=== PATIENT | male | born 1940 | race Caucasian/White ===

== ENCOUNTER 2017-09-05 22:41 | Inpatient (IN) | payer MEDICARE ==
[2017-09-05] MEDS ORDERED: Sodium Chloride 0.9% 100 ML ONE (23:27)
[2017-09-05] MEDS ORDERED: cefTRIAXone\\ROCEPHIN 2 GM VIAL ONE (23:27)
[2017-09-05 23:43] LABS: Bilirubin Negative (Negative); Blood, Urine Moderate (Negative); Clarity CLOUDY (Clear); Glucose, Urine (Dipstick) Negative (Negative); Leukocyte Moderate (Negative); Nitrite Negative (Negative); Protein, Urine (Dipstick) Negative (Neg-Trace); Specific Gravity, Urine 1.007 (1.002-1.036)
[2017-09-05 23:46] LABS: Bacteria/HPF 2+ HPF (None Seen); Hyaline Casts/LPF 4-6 HYALINE CAST LPF (0-3 Hyaline); Pathc Cast-AUWi Flag 1.01 (0-2.49); Squamous Epithelial None Seen HPF (0-3); WBC/HPF 21-50 HPF (0-3)
[2017-09-06] LABS: Troponin I 0.065 ng/mL (< 0.028)
[2017-09-06] MEDS ORDERED: Acetaminophen 325 MG TAB PO PRN (01:52)
[2017-09-06] MEDS ORDERED: Ondansetron HCl/PF 4 MG/2 ML Vial IVP PRN (01:52)
[2017-09-06] MEDS ORDERED: Ondansetron ODT 4 MG TAB SL PRN (01:52)
[2017-09-06 02:58] LABS: Troponin I 0.058 ng/mL (< 0.028)
[2017-09-06] MEDS ORDERED: HumaLOG 300 UNITS/3 ML VIAL SC PRN (03:47)
[2017-09-06] MEDS ORDERED: Dextrose 50% Abboject 50 ML SYRINGE SLOW IVP PRN (03:47)
[2017-09-06] MEDS ORDERED: Dextrose 5% in Water 1,000 ML IV PRN (03:47)
--- NOTE | 2017-09-06 06:10 | HP ---
CHIEF COMPLAINT: Weakness. HISTORY OF PRESENT ILLNESS: Patient is a 77-year-old male who was in [facility], who reports that he has some chronic debility relating to a C-spine injury 10 years ago. Patient fell and actual ly broke his C-spine, had to have surgery. He has had some generalized weakness since that time. Freddy calloway also has a history of prostate cancer requiring radiation therapy, which resulted in a chronic indwelling Burden catheter. Patient reports that about one week ago, he started feeling generally wea k. This is on top of his typical chronic weakness. He progressed to the point where he actually fel l about 3 days ago. He had a home health nurse that time tell him that she thought that he was dehyd rated and he should start pushing fluids. This was partly based on the fact that he was having some dark urine. He states he has been trying to push fluids, but has just become progressively weak and ultimately presented to the emergency department in [place] today. There, the patient was noted to have an O2 sat of 89% on room air. His temperature was 99.4 tympanic. He has significant periph eral edema, which he states is chronic and has been present for years. Based on the hypoxia, the per ipheral edema and a chest x-ray, the patient was felt to be in some congestive heart failure with vol ume overload. He received a dose of IV Lasix at that time. He also had a slightly elevated troponin and then was subsequently transferred to [place] to this facility. In the Emergency Department here, the patient was reassessed and felt as though he likely had some underlying pneumonia and was given a dose of Levaquin and Rocephin. Currently, the patient reports that he is feeling somewhat better an d believes it was likely due to the diuresis that he received in [place]. On questioning, he re ports that he has had some shortness of breath during this last week of generalized weakness. He als o admits to having a cough that was productive of some thick yellow sputum. He denies any fevers or chills, but states that he is always extremely cold even on the hottest days. REVIEW OF SYSTEMS: Patient reports he has had very poor appetite over the last week. He has had the dark urine. I believe, he did actually have some fever this morning briefly otherwise eleven-point system review is negative other than those things mentioned in the history of present illness. PAST MEDICAL HISTORY: Notable for the above-mentioned C-spine injury related to the fall about 10 ye ars ago. He also has a history of prostate cancer and requiring radiation therapy. He has chronic i ndwelling Burden catheter. Diabetes mellitus, he reports he has been checking his blood sugars and th ey have been running higher since he has been feeling poorly. PAST SURGICAL HISTORY: C-spine surgery, suprapubic catheter placement, tonsillectomy, herniorrhaphy, cataractectomy. FAMILY HISTORY: His mother at 22. He is unaware of the specifics, but believes she had some ty pe of throat problem. His father at 44 of cancer. SOCIAL HISTORY: Patient is . He quit smoking over 40 years ago. He has no alcohol use. He states that he lives with his and she would be his surrogate decision maker. The patient is celso ar that he does want to be a DNR. ALLERGIES: ALBUTEROL, which caused him to feel jittery. He has also had some GI issues with METFORM IN. MEDICATIONS: Not entirely verified at this point include melatonin 5 mg at bedtime, vitamin C 500 mg every day, potassium 99 mg p.o. daily, Lasix 40 mg 1-2 p.o. daily, doxazosin 4 mg p.o. daily, oxybut ynin 5 mg q.8 hours, zinc 50 mg every day, glimepiride 4 mg every day. PHYSICAL EXAMINATION: VITAL SIGNS: Temperature 98.5, pulse 88, respirations 20, O2 sat 100% on 2 liters nasal cannula, BP 164/81. GENERAL APPEARANCE: Age appropriate male. He is awake, alert, oriented, pleasant, cooperative. He is in no distress. HEENT: PERRL. No OP lesions. He does have a very dry oral mucosa. NECK: Supple and symmetric without murmurs. CHEST: Lungs are clear. CARDIOVASCULAR: Regular rate and rhythm without murmurs. LUNGS: Have slightly diminished breath sounds at the bases with minimal rales noted. ABDOMEN: Soft, nontender, nondistended. Positive bowel sounds. No masses, no organomegaly. Suprap ubic catheter in place, looks good. EXTREMITIES: Reveal 2+ pitting edema to the level of the knee or higher. LABORATORY DATA: Troponin 0.065, repeat 0.058. Urinalysis shows moderate blood, moderate leukocyte esterase, negative nitrites, 4-6 rather red cells, 21-50 white cells, 2+ bacteria. White count 8.9, hemoglobin 14.1, MCV 76.6, platelets 108. Sodium is 129, potassium 3.4, chloride 88, BUN 32, creatin ine 1.22, glucose 315. Total bilirubin is 1.4, AST 55, ALT 128, alkaline phosphatase 208, albumin 3. 2. TSH is 0.38, T4 of 1.27. ASSESSMENT AND PLAN: 1. Generalized weakness. Differential includes possible urinary tract infection versus pneumonia ve rsus congestive heart failure versus dehydration with hyperglycemia versus possible etiology of the l iver. 2. Pneumonia is unclear whether this patient has significant findings on his x-ray at this point, I do not have access to that nor report that I can find in the chart. We will repeat a chest x-ray in the morning. In the meantime, the patient will be covered with Rocephin and azithromycin. The patie nt does have some productive cough. 3. Urinary tract infection. It is certainly possible as the patient is having some infection, but h e does have a chronic indwelling Burden catheter may be more colonization. We will follow up urine cu ltures and should be covered with Rocephin. Patient did receive a dose of Levaquin in the ER; jesus kingston I will not continue that unless indicated. 4. Peripheral edema. Patient may have some underlying congestive heart failure. This may be more d ependent. We will check an echocardiogram. Patient did receive a dose of Lasix; however, he has cecil e evidence of having some prerenal azotemia. We will hold off in any further aggressive diuresis unl ess that is indicated by the echo. His BNP today is low at 25.8. 5. Prerenal azotemia. Unclear if this is secondary to dehydration, which could be the case given hi s hyperglycemia or if this is due to poor cardiac function. Echocardiogram will help delineate that. 6. Elevated troponin, unclear etiology. This does appear to be decreasing rather than increasing. Certainly would be consistent with congestive heart failure picture. 7. Elevated liver function test with elevated bilirubin concerning for a cholestatic picture. We wi ll obtain ultrasound of the right upper quadrant. 8. Hyponatremia. This could be due to the prerenal azotemia or congestive heart failure and may be exacerbated by the hyperglycemia. We will recheck in the morning after he had had the diuresis earli er. 9. Sacral decubitus. Wound Care consult. 10. History of C-spine injury with generalized weakness. We will consult Physical Therapy. 11. Hematology: Patient has borderline low platelets. No acute intervention indicated at this time as they are adequate. 12. Deep venous thrombosis prophylaxis.
[2017-09-06 06:27] LABS: Troponin I 0.057 ng/mL (< 0.028)
--- NOTE | 2017-09-06 08:24 | ULT ---
RIGHT UPPER QUADRANT SONOGRAM: Date: 09/06/17 HISTORY: Abnormal liver function tests. FINDINGS: Echogenic stones are apparent within the gallbladder lumen. No gallbladder wall thickening or pericho lecystic fluid. Common duct 0.8 cm. Patient was reportedly not tender over the gallbladder fossa at the time of the exam. No free fluid. Liver is diffusely echogenic and heterogeneous without focal mass or intrahepatic bili south dilatation. IMPRESSION: 1. Cholelithiasis. Mildly dilated common duct without Mckeon's sign. Clinical correlation regarding other signs and symptoms of acute cholecystitis is required. Radionuclide hepatobiliary scan could be used to evaluate for biliary patency if needed. 2. Hepatic steatosis. POS: OFF
[2017-09-06] MEDS: Enoxaparin Sodium 40 MG/0.4 ML SYRINGE SC SCH (08:26)
[2017-09-06] MEDS: Famotidine 20 MG TAB PO SCH ×2 (08:26→20:44)
[2017-09-06] MEDS: Docusate 100 MG CAP PO SCH ×2 (08:26→20:45)
--- NOTE | 2017-09-06 08:57 | RAD ---
ONE VIEW CHEST: HISTORY: Hypoxia. FINDINGS: AP view chest was obtained on 09/06/17. One view chest demonstrates EKG leads seen over the chest. Pulmonary vascular congestion seen. Areas of airspace opacities seen in the left lung base compatible with left lower lobe atelectasis or pneumonia. The right lung is well aerated. IMPRESSION: Areas of airspace opacity seen in the left lung base. POS: [facility]
[2017-09-06] MEDS ORDERED: Prevnar 13-Val Conj/PF 0.5 ML SYRINGE IM ONE (09:00)
--- NOTE | 2017-09-06 13:54 | PDOC.PN ---
- Subjective Encounter Start Date: 09/06/17 Encounter Start Time: 13:53 Mr. Oswald was seen today in follow-up for progressive weakness.He says he feels a little better this morning. When asked about abdominal pain, he denies having this, nor nausea, just no appetite over the past few days. He denies cough or congestion, he denies dyspnea. - Objective Resuscitation Status: Resuscitation Status DNR:Do Not Resuscitate MAR Reviewed: Yes Vital Signs & Weight: Vital Signs (12 hours) Temp Pulse Resp BP Pulse Ox 09/06/17 11:42 99.5 F 85 18 119/77 96 09/06/17 08:00 99.7 F H 84 18 99 09/06/17 07:25 99.7 F H 84 18 122/59 L 99 09/06/17 05:43 98.7 F 85 20 103/58 L 99 09/06/17 02:23 98.5 F 88 20 164/81 H 100 09/06/17 02:10 98.5 F 88 20 100 Weight Admit Weight 280 lb 8 oz Weight 280 lb 8 oz I&O: 09/05/17 09/06/17 09/07/17 06:59 06:59 06:59 Intake Total 72 Output Total 800 Balance -728 Additional Labs: Accuchecks 09/06/17 09/06/17 11:20 06:14 POC Glucose 157 H 177 H Phys Exam - Physical Examination HEENT: PERRLA, sclera anicteric Respiratory: no wheezing, no rhonchi + rales in both bases Cardiovascular: RRR, no significant murmur, no rub Gastrointestinal: soft, non-tender, positive bowel sounds Musculoskeletal: no edema Dx/Plan (1) Generalized weakness Code(s): R53.1 - WEAKNESS Status: Acute (2) Pneumonia, community acquired Code(s): J18.9 - PNEUMONIA, UNSPECIFIED ORGANISM Status: Acute (3) Cholelithiasis Code(s): K80.20 - CALCULUS OF GALLBLADDER W/O CHOLECYSTITIS W/O OBSTRUCTION Status: Acute (4) Diabetes mellitus type 2 in obese Code(s): E11.69 - TYPE 2 DIABETES MELLITUS WITH OTHER SPECIFIED COMPLICATION; E66.9 - OBESITY, UNSPECIFIED Status: Acute (5) Hyponatremia Code(s): E87.1 - HYPO-OSMOLALITY AND HYPONATREMIA Status: Acute - Plan * Generalized weakness- ? due to pneumonia alone versus pneumonia and cholecystitis- he has elevated LFT's but no complaint of abdominal pain, or nausea- will check a HIDA scan to help us differentiate * Pneumonia- continue Rocephin, and Azithromycin. * Hyponatremia- this may be due to volume depletion- will place him on IV fluids and re-evaluate in the AM
[2017-09-06] MEDS ORDERED: hydrALAZINE 20 MG/ML VIAL SLOW IVP PRN (14:00)
[2017-09-06] MEDS ORDERED: Melatonin 3 MG TAB PO PRN (14:13)
[2017-09-06] MEDS: Acetaminophen 325 MG TAB PO PRN (15:29)
[2017-09-06] MEDS: Sodium Chloride 0.9% 1,000 ML IV SCH (16:54)
[2017-09-06] MEDS: Oxybutynin 5 MG TAB PO SCH (20:44)
[2017-09-06] MEDS: cefTRIAXone\\ROCEPHIN 1 GM in Sodium Chloride 0.9% 100 ML IVPB SCH (20:45)
[2017-09-06] MEDS: Azithromycin 500 MG in Sodium Chloride 0.9% 250 ML 250 ML IVPB SCH (21:36)
[2017-09-07 05:47] LABS: Hemoglobin A1c 10.8 % (4.0-6.0)
[2017-09-07 05:49] LABS: #Basophils 0.1 thou/uL (0.0-0.2); #Eosinphils 0.2 thou/uL (0.0-0.7); #Lymphocytes 1.4 thou/uL (1.20-3.40); #Monocytes 1.2 thou/uL (0.11-0.59); #Neutrophils 5.1 thou/uL (1.40-6.50); %Basophils 1.7 % (0.0-1.0); %Eosinophils 2.5 % (0.0-10.0); %Lymphocytes 17.1 % (21.0-51.0); %Monocytes 14.6 % (0.0-10.0); %Neutrophils 64.1 % (42.0-75.0); Hemoglobin 13.7 g/dL (14.0-18.0); Mean Corpuscular HGB CONC 32.8 g/dL (32.0-36.0); Mean Corpuscular Hemoglobin 26.3 pg (27.0-31.0); Mean Corpuscular Volume 80.2 fl (80.0-94.0); Platelet Count 105 thou/uL (130-400); RBC Distribution Width 15.4 % (11.5-14.5)
[2017-09-07 05:53] LABS: ALT (SGPT) 62 U/L (8-55); AST (SGOT) 30 U/L (5-34); Albumin 2.9 g/dL (3.4-4.8); Alkaline Phosphatase 168 U/L (40-150); Anion Gap 12 mmol/L (10-20); BUN (Urea Nitrogen) 22 mg/dL (8.4-25.7); Bilirubin, Total 0.7 mg/dL (0.2-1.2); Calc. Creatinine Clearance 129 mL/min (70-130); Calcium 8.6 mg/dL (7.8-10.44); Carbon Dioxide 32 mmol/L (23-31); Cardiac Risk 11.7 (Less than 4.5); Chloride 95 mmol/L (98-107); Cholesterol 129 mg/dl (< 200 Desired); Estimated GFR-MDRD 83; Globulin 3.5 g/dL (2.4-3.5); Glucose 190 mg/dL (83-110); HDL Cholesterol 11 mg/dL (>60 Neg Risk); LDL Cholesterol, Calculated 75 mg/dL; Potassium 3.1 mmol/L (3.5-5.1); Protein, Total 6.4 g/dL (5.8-8.1); Sodium 136 mmol/L (136-145); Triglycerides 215 mg/dL (Less than 150)
[2017-09-07] MEDS: Sodium Chloride 0.9% 1,000 ML IV SCH (07:14)
[2017-09-07] MEDS: Glimepiride 4 MG TAB PO SCH (08:00)
[2017-09-07] MEDS: Enoxaparin Sodium 40 MG/0.4 ML SYRINGE SC SCH ×2 (09:00→17:56)
[2017-09-07] MEDS: Doxazosin Mesylate 4 MG TAB PO SCH (09:00)
[2017-09-07] MEDS: Famotidine 20 MG TAB PO SCH ×2 (09:00→20:02)
[2017-09-07] MEDS: Docusate 100 MG CAP PO SCH ×2 (09:00→20:03)
[2017-09-07] MEDS: Oxybutynin 5 MG TAB PO SCH ×2 (09:00→20:02)
[2017-09-07] MEDS: Potassium Chloride 10 MEQ in Premix Bag 1 BAG IVPB SCH ×3 (13:48→16:05)
--- NOTE | 2017-09-07 14:11 | NM ---
HEPATOBILIARY SCAN: HISTORY: Abnormal liver function tests. Cholelithiasis. Hepatic steatosis. RADIOPHARMACEUTICAL: 4.8 millicuries technetium 99m mebrofenin injected intravenously. FINDINGS: There is good tracer extraction by the liver with prompt excretion into the biliary tract and small b owel loops, and normal filling of the gallbladder. The gallbladder fills up at 30 minutes and sponta neously empties subsequently. The calculated ejection fraction, even without stimulation (oral fatty meal or CCK-8 IV infusion), measures 75%. IMPRESSION: Normal exam. POS: [facility]
--- NOTE | 2017-09-07 14:27 | PDOC.PN ---
- Subjective Encounter Start Date: 09/07/17 Encounter Start Time: 14:24 Mr. Oswald was seen today in follow-up of generalized weakness. He says he feels a little better, but is still quite weak. He says prior to coming to the hospital with this current illness, he was able to walk a few steps with his walker, and transfer to his wheelchair. Now he says he is unable tomove hardly at all even in the bed. He is afraid he will fall, and he stays it takes 3 people to get him up. - Objective Resuscitation Status: Resuscitation Status DNR:Do Not Resuscitate MAR Reviewed: Yes Vital Signs & Weight: Vital Signs (12 hours) Temp Pulse Resp BP Pulse Ox 09/07/17 13:27 98.1 F 78 19 134/70 94 L 09/07/17 08:16 98.8 F 74 20 135/66 91 L 09/07/17 08:00 98.8 F 74 20 91 L 09/07/17 04:00 98 F 79 18 127/57 L 94 L Weight Admit Weight 280 lb 8 oz Weight 280 lb 8 oz I&O: 09/06/17 09/07/17 09/08/17 06:59 06:59 06:59 Intake Total 72 Output Total 800 1650 Balance -728 -1650 Result Diagrams: 09/07/17 05:08 09/07/17 05:08 Additional Labs: Accuchecks 09/07/17 09/06/17 09/06/17 06:33 20:35 16:44 POC Glucose 171 H 190 H 183 H Phys Exam - Physical Examination HEENT: PERRLA Respiratory: no wheezing, no rales, no rhonchi, clear to auscultation bilateral Cardiovascular: RRR, no significant murmur, no rub Gastrointestinal: soft, non-tender, positive bowel sounds Musculoskeletal: edema present trace pedal edema Dx/Plan (1) Generalized weakness Code(s): R53.1 - WEAKNESS Status: Acute (2) Pneumonia, community acquired Code(s): J18.9 - PNEUMONIA, UNSPECIFIED ORGANISM Status: Acute (3) Cholelithiasis Code(s): K80.20 - CALCULUS OF GALLBLADDER W/O CHOLECYSTITIS W/O OBSTRUCTION Status: Acute (4) Diabetes mellitus type 2 in obese Code(s): E11.69 - TYPE 2 DIABETES MELLITUS WITH OTHER SPECIFIED COMPLICATION; E66.9 - OBESITY, UNSPECIFIED Status: Acute (5) Hyponatremia Code(s): E87.1 - HYPO-OSMOLALITY AND HYPONATREMIA Status: Acute - Plan * Generalized weakness- this is likely from Pneumonia, as the HIDA scan was negative, and he does not offer any symptoms related to biliary disease * Will continue Rocephin and Azithromycin * Hyponatremia- improved * Hypokalemia- will replace potassium * DM- blood glucose is stable * Deconditioning- continue PT/OT, I suspect he will need a stay in [facility] or Rehab prior to returning home.
[2017-09-07] MEDS: cefTRIAXone\\ROCEPHIN 1 GM in Sodium Chloride 0.9% 100 ML IVPB SCH (20:00)
[2017-09-07] MEDS: Azithromycin 500 MG in Sodium Chloride 0.9% 250 ML 250 ML IVPB SCH (21:31)
[2017-09-08 05:40] LABS: Anion Gap 13 mmol/L (10-20); BUN (Urea Nitrogen) 15 mg/dL (8.4-25.7); Calc. Creatinine Clearance 164 mL/min (70-130); Calcium 8.5 mg/dL (7.8-10.44); Carbon Dioxide 28 mmol/L (23-31); Chloride 101 mmol/L (98-107); Estimated GFR-MDRD Greater than 90; Glucose 143 mg/dL (83-110); Potassium 3.1 mmol/L (3.5-5.1); Sodium 139 mmol/L (136-145)
[2017-09-08] MEDS: Glimepiride 4 MG TAB PO SCH (08:59)
[2017-09-08] MEDS: Famotidine 20 MG TAB PO SCH ×2 (08:59→21:00)
[2017-09-08] MEDS: Doxazosin Mesylate 4 MG TAB PO SCH (09:00)
[2017-09-08] MEDS: Oxybutynin 5 MG TAB PO SCH ×2 (09:00→20:59)
[2017-09-08] MEDS: Docusate 100 MG CAP PO SCH ×2 (09:00→20:59)
[2017-09-08] MEDS: Enoxaparin Sodium 40 MG/0.4 ML SYRINGE SC SCH (09:01)
--- NOTE | 2017-09-08 12:07 | PDOC.PN ---
- Subjective Encounter Start Date: 09/08/17 Encounter Start Time: 12:05 Mr. Oswald was seen today in follow-up. He does not have any complaints today. He is feeling much better, and is very happy he could stand up with the aid of a walker. - Objective Resuscitation Status: Resuscitation Status DNR:Do Not Resuscitate MAR Reviewed: Yes Vital Signs & Weight: Vital Signs (12 hours) Temp Pulse Resp BP Pulse Ox 09/08/17 08:44 98.5 F 65 12 130/60 92 L 09/08/17 08:00 98.5 F 65 12 09/08/17 03:22 97.9 F 66 21 H 115/57 L 96 Weight Admit Weight 280 lb 8 oz Weight 280 lb 8 oz I&O: 09/07/17 09/08/17 09/09/17 06:59 06:59 06:59 Intake Total 3071 Output Total 1650 1575 Balance -1650 1496 Result Diagrams: 09/07/17 05:08 09/08/17 04:54 Additional Labs: Accuchecks 09/08/17 09/07/17 09/07/17 06:02 20:50 17:01 POC Glucose 146 H 193 H 151 H Phys Exam - Physical Examination HEENT: PERRLA Respiratory: no wheezing, no rales, no rhonchi, clear to auscultation bilateral Cardiovascular: RRR, no significant murmur, no rub Gastrointestinal: soft, non-tender, positive bowel sounds Musculoskeletal: no edema Dx/Plan (1) Generalized weakness Code(s): R53.1 - WEAKNESS Status: Acute (2) Pneumonia, community acquired Code(s): J18.9 - PNEUMONIA, UNSPECIFIED ORGANISM Status: Acute (3) Cholelithiasis Code(s): K80.20 - CALCULUS OF GALLBLADDER W/O CHOLECYSTITIS W/O OBSTRUCTION Status: Acute (4) Diabetes mellitus type 2 in obese Code(s): E11.69 - TYPE 2 DIABETES MELLITUS WITH OTHER SPECIFIED COMPLICATION; E66.9 - OBESITY, UNSPECIFIED Status: Acute (5) Hyponatremia Code(s): E87.1 - HYPO-OSMOLALITY AND HYPONATREMIA Status: Acute - Plan * Pneumonia- continue IV antibiotics one more day- but can de-escalate tomorrow , since he is improving * Hypokalemia- he tells me he has a history of this prior to admission- will continue to replace, and check a serum magnesium level * DM- blood glucose is stable * Generalized weakness- continue PT/OT * Awaiting [facility] placement.
[2017-09-08] MEDS: Potassium Chloride 20 MEQ TAB PO SCH (18:21)
[2017-09-08] MEDS: cefTRIAXone\\ROCEPHIN 1 GM in Sodium Chloride 0.9% 100 ML IVPB SCH (21:16)
[2017-09-08] MEDS: Azithromycin 500 MG in Sodium Chloride 0.9% 250 ML 250 ML IVPB SCH (21:17)
[2017-09-09] MEDS: Acetaminophen 325 MG TAB PO PRN (06:44)
[2017-09-09 07:00] LABS: Anion Gap 12 mmol/L (10-20); BUN (Urea Nitrogen) 11 mg/dL (8.4-25.7); Calc. Creatinine Clearance 162 mL/min (70-130); Calcium 8.7 mg/dL (7.8-10.44); Carbon Dioxide 30 mmol/L (23-31); Chloride 102 mmol/L (98-107); Estimated GFR-MDRD Greater than 90; Glucose 114 mg/dL (83-110); Potassium 3.2 mmol/L (3.5-5.1); Sodium 141 mmol/L (136-145)
[2017-09-09] MEDS ORDERED: Saccharomyces boulardii 250 MG CAP PO SCH (09:00)
[2017-09-09] MEDS: Potassium Chloride 20 MEQ TAB PO SCH (09:10)
[2017-09-09] MEDS: Doxazosin Mesylate 4 MG TAB PO SCH (09:10)
[2017-09-09] MEDS: Enoxaparin Sodium 40 MG/0.4 ML SYRINGE SC SCH (09:10)
[2017-09-09] MEDS: Famotidine 20 MG TAB PO SCH (09:10)
[2017-09-09] MEDS: Glimepiride 4 MG TAB PO SCH (09:10)
[2017-09-09] MEDS: Oxybutynin 5 MG TAB PO SCH (09:11)
[2017-09-09] MEDS: Docusate 100 MG CAP PO SCH (09:11)
[2017-09-09 09:42] VITALS: BMI 39.1
--- NOTE | 2017-09-09 12:23 | PDOC.PN ---
- Subjective Encounter Start Date: 09/09/17 Encounter Start Time: 12:21 Mr. Oswald was seen in follow-up. He says he is feeling better. No complaints. He was able to stand some with physical therapy. - Objective Resuscitation Status: Resuscitation Status DNR:Do Not Resuscitate MAR Reviewed: Yes Vital Signs & Weight: Vital Signs (12 hours) Temp Pulse Resp BP Pulse Ox 09/09/17 08:00 98.3 F 68 12 93 L 09/09/17 07:00 98.3 F 68 12 118/57 L 09/09/17 03:00 97.9 F 69 17 141/70 H 96 Weight Admit Weight 280 lb 8 oz Weight 272 lb 11.2 oz I&O: 09/08/17 09/09/17 09/10/17 06:59 06:59 06:59 Intake Total 3071 910 Output Total 1575 2975 Balance 1496 -2065 Result Diagrams: 09/07/17 05:08 09/09/17 05:59 Additional Labs: Accuchecks 09/09/17 09/08/17 09/08/17 05:54 20:56 16:29 POC Glucose 106 154 H 149 H 09/08/17 10:48 POC Glucose 203 H Phys Exam - Physical Examination HEENT: PERRLA Respiratory: no wheezing, no rales, no rhonchi, clear to auscultation bilateral Cardiovascular: RRR, no significant murmur Gastrointestinal: soft, non-tender, positive bowel sounds Musculoskeletal: edema present trace pedal edema Dx/Plan (1) Generalized weakness Code(s): R53.1 - WEAKNESS Status: Acute (2) Pneumonia, community acquired Code(s): J18.9 - PNEUMONIA, UNSPECIFIED ORGANISM Status: Acute (3) Cholelithiasis Code(s): K80.20 - CALCULUS OF GALLBLADDER W/O CHOLECYSTITIS W/O OBSTRUCTION Status: Acute (4) Diabetes mellitus type 2 in obese Code(s): E11.69 - TYPE 2 DIABETES MELLITUS WITH OTHER SPECIFIED COMPLICATION; E66.9 - OBESITY, UNSPECIFIED Status: Acute (5) Hyponatremia Code(s): E87.1 - HYPO-OSMOLALITY AND HYPONATREMIA Status: Acute - Plan * Pneumonia- can change to oral antibiotics * Hypokalemia- continue to replace * DM- blood glucose is stable * HTN- blood pressure is stable * Deconditioning- continue PT/OT, and [place] [facility] placement .
[2017-09-09] MEDS ORDERED: traMADol HCl 50 MG TAB PO PRN (12:24)
[2017-09-09 12:58] VITALS: TEMP 98.2
[2017-09-09 13:30] VITALS: BP 108/54
[2017-09-09] MEDS ORDERED: Cefdinir 300 MG CAP PO SCH (21:00)
[2017-09-09] MEDS ORDERED: Magnesium Oxide 400 MG TAB PO SCH (21:00)
--- NOTE | 2017-09-10 03:43 | DIS ---
DATE OF ADMISSION: 09/06/2017 DATE OF DISCHARGE: 09/09/2017 PRIMARY CARE PHYSICIAN: Gigi Ramirez MD DISCHARGE DISPOSITION: To the [place] [facility]. DISCHARGE DIAGNOSES: 1. Pneumonia. 2. Metabolic encephalopathy secondary to #1. 3. Diabetes mellitus, type 2. 4. Hypertension. 5. Cholelithiasis without cholecystitis. 6. Hypertension. 7. Deconditioning. 8. History of incomplete C10 quadriplegia. DISCHARGE MEDICATIONS: Include Omnicef 300 mg twice a day for 5 days, zinc 50 mg daily, Tramadol 50 mg q.6 hours, Florastor 250 mg daily, potassium chloride 40 mEq twice a day, oxybutynin 5 mg twice da burton, melatonin 5 mg at bedtime, glimepiride 4 mg daily, furosemide 40 mg daily, doxazosin 4 mg daily, cranberry extract once daily, and vitamin C 500 mg daily. PROCEDURES DONE DURING ADMISSION: The patient had an abdominal ultrasound, which was significant for hepatic steatosis and cholelithiasis. The patient had an echocardiogram in which the ejection fract ion was estimated at 55-60%, diastolic dysfunction was not assessed due to tachycardia. There was a poor difficult study with poor endocardial definition. The patient had a hepatobiliary scan and it w as normal. The ejection fraction was 75%. CODE STATUS: DNR. ALLERGIES: ALBUTEROL. HOSPITAL COURSE: Mr. Oswald is a pleasant 77-year-old gentleman who presented to the emergency room with complaints of generalized weakness. He was also hypoxic on exam, he was found to have an underl teo pneumonia. He was also noted to have gallstones and a HIDA scan was done to rule out cholecysti tis, it is a possible cause of his symptoms. The HIDA scan was negative and the patient improved wit h IV antibiotic therapy. However, he was severely deconditioned. He had previously been able to amb ulate short distances with a walker and transfer himself, however, since this current illness, he was unable to do that and would need quite a bit of assistance with this. 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
== END 2017-09-09 16:40 | DRG 193 ==
LOC: ERS 22:41 → 2NO 09-06 01:03
PROVIDERS: ADMIT Internal Medicine; ATTEND Internal Medicine
DX: J18.9 Pneumonia, unspecified organism (principal); G93.41 Metabolic encephalopathy; G82.50 Quadriplegia, unspecified; E87.1 Hypo-osmolality and hyponatremia; Z68.41 Body mass index [BMI] 40.0-44.9, adult; R53.81 Other malaise; E86.0 Dehydration; E11.9 Type 2 diabetes mellitus without complications; L89.159 Pressure ulcer of sacral region, unspecified stage; I10 Essential (primary) hypertension; K80.20 Calculus of gallbladder without cholecystitis without obstruction; E66.9 Obesity, unspecified; E87.6 Hypokalemia; Z85.46 Personal history of malignant neoplasm of prostate; Z92.3 Personal history of irradiation
CPT/HCPCS: 36415; 36416; 71045; 76705; 78227; 80048; 80053; 80061; 83036; 83735; 84484; 85025; 93005; 93306; 96365; 96367; A4216; A9537; G8978-GP-CM; G8979-GP-CL; G8987-GO-CM; G8988-GO-CL; J0456; J0696; J1650; J1956; J3480; J7050

== ENCOUNTER 2018-09-25 22:05 | Emergency (ER) | payer MEDICARE ==
[2018-09-26 02:47] LABS: #Eosinphils 0.3 thou/uL (0.0-0.7); #Lymphocytes 1.9 thou/uL (1.20-3.40); #Monocytes 0.7 thou/uL (0.11-0.59); #Neutrophils 5.8 thou/uL (1.40-6.50); %Basophils 0.2 % (0.0-1.0); %Neutrophils 66.8 % (42.0-75.0); Hemoglobin 13.9 g/dL (14.0-18.0); Mean Corpuscular HGB CONC 32.5 g/dL (32.0-36.0); Mean Corpuscular Volume 83.1 fL (78.0-98.0); Mean Platelet Volume 9.4 fL (7.4-10.4); Platelet Count 142 thou/uL (130-400); RBC Distribution Width 13.7 % (11.5-14.5); Red Blood Cell (RBC) Count 5.16 mill/uL (4.70-6.10); White Blood Cell (WBC) Count 8.7 thou/uL (4.8-10.8)
[2018-09-26 02:57] LABS: ALT (SGPT) 10 U/L (8-55); AST (SGOT) 12 U/L (5-34); Albumin 3.8 g/dL (3.4-4.8); Alkaline Phosphatase 82 U/L (40-150); Anion Gap 12 mmol/L (10-20); BUN (Urea Nitrogen) 8 mg/dL (8.4-25.7); Bilirubin, Total 0.6 mg/dL (0.2-1.2); Calc. Creatinine Clearance 0 mL/min (70-130); Calcium 9.4 mg/dL (7.8-10.44); Carbon Dioxide 30 mmol/L (23-31); Chloride 102 mmol/L (98-107); Estimated GFR-MDRD Greater than 90; Globulin 3.2 g/dL (2.4-3.5); Glucose 122 mg/dL (83-110); Potassium 3.5 mmol/L (3.5-5.1); Sodium 140 mmol/L (136-145)
--- NOTE | 2018-09-26 10:59 | CON ---
DATE OF CONSULTATION: 09/26/2018 REASON FOR CONSULTATION: Urinary retention with dislodged suprapubic catheter. HISTORY OF PRESENT ILLNESS: The patient is a pleasant 78-year-old male with past urologic history significant for prostate cancer treated by radiation over 10 years ago. 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 The patient saw Dr. Davis for a while and then transferred his care to a urologist in [place], [place]. The patient has a suprapubic catheter and has had this for 2 to 3 years. His suprapubic catheter output yesterday was are quite low and he was leaking per his urethra significantly. He called his home health nurse and she attempted to change the suprapubic catheter. However, after removal, was unsuccessful replacing it. The patient presented to [facility] in [place] and the emergency room physician was unable to replace this as well and the patient was subsequently transferred to [facility] in [facility]. Attempts at replacement of the suprapubic catheter by the emergency room nursing staff as well as attempts at urethral catheterization were unsuccessful. Urology was consulted for further evaluation. The patient states he has history of urethral stricture disease. In 2016, Dr. 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 The patient denies any recent episodes of gross hematuria. He reports intermittently his urine has a fair amount of sediment in it, but overall he has minimal trouble with his suprapubic catheter. He does state that at one point, he had a 16-Thai suprapubic catheter in, although over the past 2 to 3 months, he has had only a 12-Thai given the fact they had difficulty getting the 16 in. He has no other complaints. REVIEW OF SYSTEMS: Full 12-point review of systems was performed, is negative other than that mentioned in HPI. PAST MEDICAL HISTORY: Cervical spine injury related to a fall approximately 10 years ago, prostate cancer status post radiation therapy, neurogenic bladder, and diabetes mellitus. PAST SURGICAL HISTORY: Multiple cervical spine surgeries, suprapubic catheter placement, cystoscopy with clot evacuation, tonsillectomy, herniorrhaphy, and cataract. FAMILY HISTORY: Noncontributory. SOCIAL HISTORY: The patient is . He lives in [place], [place]. He has a remote smoking history, although quit smoking over 40 years ago. No alcohol use. ALLERGIES: ALBUTEROL AND METFORMIN. MEDICATIONS: 1. Melatonin. 2. Vitamin C. 3. Potassium. 4. Lasix. 5. Doxazosin. 6. Oxybutynin. 7. Zinc. 8. Glimepiride. PHYSICAL EXAMINATION: VITAL SIGNS: The patient is afebrile. Vital signs are stable. GENERAL: He is awake and alert, in no apparent distress. HEENT: Normocephalic and atraumatic. Sclerae anicteric. NECK: Supple. No masses or lymphadenopathy. CARDIOVASCULAR: Regular rate and rhythm. PULMONARY: Breathing unlabored. No wheezing. ABDOMEN: Obese, soft, and nontender/nondistended. No masses or organomegaly. No suprapubic tenderness to palpation. No CVA tenderness. Suprapubic catheter site is clean/dry/intact, currently within a skin fold with signs of Luly surrounding it. GENITOURINARY: Uncircumcised penis without concerning lesions. Scrotum normal. Testes normal, but atrophy bilaterally. EXTREMITIES: Few contractures present. NEUROLOGIC: Consistent with paraplegia. LABORATORY DATA: White blood cell count 8.7, hemoglobin 13.9, hematocrit 42.9, and platelets 142. Sodium 140, potassium 3.5, chloride 102, bicarb 30, BUN 8, and creatinine 0.65. ASSESSMENT: A 78-year-old male with neurogenic bladder secondary to cervical spine injury, history of indwelling suprapubic catheter with dislodged suprapubic catheter and complex replacement. PLAN: Upon evaluation of the patient in the Emergency Department, we attempted to access the suprapubic site. This was unsuccessful. At this point, under sterile conditions, attempt at passage of a 12-Thai urethral catheter was performed successfully. At this point, we elected to remove this and try to dilate and upsize and we successfully placed a 16-Thai catheter with some resistance, although we were able to bypass what appeared to be feel bulbar urethral stricture disease. This resulted in immediate drainage of large amount of somewhat cloudy urine. The patient desires to have his suprapubic catheter replaced. We will give his existing suprapubic catheter sites sometime to heal and we will replace this within the next couple of weeks as an outpatient. The patient can be discharged home from the Emergency Department from a urologic standpoint. Job ID: [id number]
== END 2018-09-26 06:58 | disposition home or self-care (01) ==
LOC: ERS 22:05
DX: T83.028A Displacement of other urinary catheter, initial encounter (principal); R33.9 Retention of urine, unspecified; I10 Essential (primary) hypertension; Z79.899 Other long term (current) drug therapy
CPT/HCPCS: 36415; 51702; 80053; 85025; 86850; 86900; 86901